=== PATIENT | female | born 1955 | race Caucasian/White ===

== ENCOUNTER 2024-01-27 10:06 | Observation (INO) ==
[2024-01-27 10:46] LABS: ABS Eosinophils 0.1 10^3/uL (0.0-0.5); ABS Lymphocytes 1.9 10^3/uL (1.0-4.8); ABS Monocytes 0.2 10^3/uL (0.0-0.9); ABS Neutrophils 1.9 10^3/uL (1.5-7.6); Eosinophil % 1.5 %; Hematocrit 41.6 % (35-45); Hemoglobin 14.3 g/dL (11.5-14.3); Lymphocyte % 46.1 %; Mean Corpuscular Hgb Conc 34.3 g/dL (31-36); Mean Corpuscular Volume 90.3 fL (80-97); Mean Platelet Volume 8.4 fL (7.5-11.2); Nucleated Red Blood Cells % 0.1 %/100WBC (0.0-0.8); Platelet Count 195 10^3/uL (150-450); Red Blood Count 4.61 10^6/uL (3.63-4.92); Red Cell Distribution Width 12.7 % (12-17); White Blood Count 4.1 10^3/uL (3.8-11.8)
[2024-01-27 10:52] LABS: INR 1.06 (0.85-1.14)
[2024-01-27 11:11] LABS: High Sens Troponin Baseline < 3 pg/mL (<15)
[2024-01-27 11:26] LABS: ALT 29 U/L (7-52); AST 30 U/L (13-39); Albumin 4.5 g/dL (3.2-5.2); Alkaline Phosphatase 30 U/L (35-149); Anion Gap 8 mmol/L (2-16); Blood Urea Nitrogen 16 mg/dL (6-24); CO2 Carbon Dioxide 31 mmol/L (22-32); Calcium 9.3 mg/dL (8.6-10.3); Chloride 103 mmol/L (101-111); Creatinine, Serum 0.66 mg/dL (0.51-0.95); Globulin 2.3 g/dL (2-4); Glucose 116 mg/dL (70-100); Potassium 3.9 mmol/L (3.5-5.0); Sodium 142 mmol/L (135-145); Total Bilirubin 0.5 mg/dL (0.2-1.0); Total Protein 6.8 g/dL (6.4-8.9); eGFR CKD-EPI 96.1 (>60)
[2024-01-27 12:07] LABS: High Sensitivity Troponin 1 Hr < 3 pg/mL (<15)
[2024-01-27] MEDS: Enoxaparin 40 MG/0.4 ML SYR SUBCUT SCH (20:03)
[2024-01-28 06:50] LABS: Hematocrit 41.2 % (35-45); Hemoglobin 14.8 g/dL (11.5-14.3); Mean Corpuscular Hemoglobin 32.1 pg (27-33); Mean Corpuscular Hgb Conc 35.8 g/dL (31-36); Mean Corpuscular Volume 89.5 fL (80-97); Mean Platelet Volume 8.6 fL (7.5-11.2); Platelet Count 221 10^3/uL (150-450); Red Cell Distribution Width 12.4 % (12-17); White Blood Count 4.8 10^3/uL (3.8-11.8)
[2024-01-28 07:04] LABS: Calcium 9.8 mg/dL (8.6-10.3); Creatinine, Serum 0.8 mg/dL (0.51-0.95); Magnesium 2.2 mg/dL (1.9-2.7); Potassium 3.9 mmol/L (3.5-5.0); eGFR CKD-EPI 80.7 (>60)
[2024-01-28 13:57] VITALS: BP 115/81
== END 2024-01-28 14:50 | disposition home or self-care (01) ==
LOC: ED 10:06 → EDHOLD 10:06 → MED 01-28 00:07
PROVIDERS: ADMIT Hospitalist; ATTEND Hospitalist